=== PATIENT | male | born 2000 | race Caucasian/White ===

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

== ENCOUNTER 2021-01-12 22:10 | Emergency (ER) | payer OTHER ==
[2021-01-12 22:14] VITALS: BP 130/86; PULSE 54; RESP 20; TEMP 99
[2021-01-12] MEDS ORDERED: LIDOCAINE 1% INJ 10MG/ML (20 ML MDV) SQ ONE (22:35)
--- NOTE | 2021-01-12 22:57 | ED ---
Wound/Laceration HPI - General Chief Complaint: Wound/Laceration Stated Complaint: IHS-hand lac Time Seen by Provider: 01/12/21 22:17 Source: patient, family Mode of arrival: ambulatory Limitations: no limitations - History of Present Illness Initial Comments: 20-year-old male presents to the emergency department with a chief complaint laceration. States it is his right fifth digit.. This occurred while at work, this was a clean laceration to the palmar aspect of the pinky. She reports some pain in the area is palpated. However, he denies any paresthesias or weakness to the pinky. Tetanus is up-to-date. Patient reports he does continue to bleed even though he has been applying adequate pressure pressure. - Related Data Previous Rx's Medication Instructions Recorded Famotidine [Pepcid] 20 mg PO BID #60 tab 03/21/18 Cholecalciferol [Vitamin D3 (25 2,000 unit PO DAILY@1200 #60 tab 04/08/18 Mcg = 1000 Iu)] Escitalopram [Lexapro] 20 mg PO DAILY #30 tab 04/08/18 Dicyclomine [Bentyl] 20 mg PO TID #20 tablet 10/17/18 Ondansetron Odt [Zofran ODT] 4 mg PO Q8HR PRN #20 tab 10/17/18 Allergies Allergy/AdvReac Type Severity Reaction Status Date / Time No Known Allergies Allergy Verified 01/12/21 22:14 Review of Systems ROS Statement: Those systems with pertinent positive or pertinent negative responses have been documented in the HPI. ROS Other: All systems not noted in ROS Statement are negative. Past Medical History Past Medical History: Seizure Disorder Additional Past Medical History / Comment(s): IBS History of Any Multi-Drug Resistant Organisms: None Reported Past Surgical History: No Surgical Hx Reported, Joint Replacement Additional Past Surgical History / Comment(s): colonoscopy Past Psychological History: Bipolar Smoking Status: Current every day smoker Past Alcohol Use History: Occasional Past Drug Use History: Marijuana - Past Family History Father History Unknown: Yes Mother History Unknown: Yes General Exam Limitations: no limitations General appearance: alert, in no apparent distress Head exam: Present: atraumatic, normocephalic, normal inspection Eye exam: Present: normal appearance, PERRL, EOMI Pupils: Present: normal accommodation ENT exam: Present: normal exam, normal oropharynx, mucous membranes moist Neck exam: Present: normal inspection, full ROM. Absent: tenderness, lymphadenopathy Respiratory exam: Present: normal lung sounds bilaterally. Absent: respiratory distress Cardiovascular Exam: Present: regular rate, normal rhythm, normal heart sounds Extremities exam: Present: full ROM, tenderness (Mild tenderness laceration site), normal capillary refill (Normal cap refill at the right fifth digit), other (. Sensation intact in injured finger). Absent: normal inspection (2 cm laceration to palmar aspect of right fifth digit) Back exam: Present: normal inspection, full ROM. Absent: tenderness Neurological exam: Present: alert, oriented X3 Psychiatric exam: Present: normal affect, normal mood Skin exam: Present: warm, dry, intact, normal color Course Vital Signs 01/12/21 22:10 Temperature 99 F Pulse Rate 54 L Respiratory 20 Rate Blood Pressure 130/86 O2 Sat by Pulse 97 Oximetry Procedures - Laceration Laceration #1 Consent Obtained: verbal consent Indication: laceration Site: hand (Finger) Size (cm): 2 Description: linear, clean Depth: simple, single layer Sedation/Analgesia: none Anesthetic Used: lidocaine 1% Anesthesia Technique: nerve block Amount (mls): 2 Pre-repair: irrigated extensively, deep structures intact Type of Sutures: nylon Size of Sutures: 4-0 Number of Sutures: 3 Technique: simple, interrupted Patient Tolerated Procedure: well, no complications Medical Decision Making - Medical Decision Making 20-year-old male presents to emergency department with chief complaint laceration. Patient is neurovascularly intact in the injured finger. His tetanus is up-to-date. Laceration site was thoroughly irrigated and repaired with 3 sutures. Patient's auto procedure well. Advised to return for suture removal. Disposition Clinical Impression: Laceration Disposition: HOME SELF-CARE Condition: Stable Instructions (If sedation given, give patient instructions): Care For Your Stitches (DC), Laceration (DC) Additional Instructions: Please return to the Emergency Department if symptoms worsen or any other concerns. Is patient prescribed a controlled substance at d/c from ED?: No Referrals: Davian Mixon MD [Primary Care Provider] - 1-2 days Time of Disposition: 22:57
== END 2021-01-12 23:10 | disposition home or self-care (01) ==
LOC: EC 22:10
DX: S61.216A Laceration without foreign body of right little finger without damage to nail, initial encounter (principal); F31.9 Bipolar disorder, unspecified; F17.200 Nicotine dependence, unspecified, uncomplicated; F12.90 Cannabis use, unspecified, uncomplicated; G40.909 Epilepsy, unspecified, not intractable, without status epilepticus; W26.8XXA Contact with other sharp object(s), not elsewhere classified, initial encounter
CPT/HCPCS: 99282; 12001; J2001